=== PATIENT | female | born 1990 | race Two or more races ===

== ENCOUNTER 2017-08-27 20:51 | Emergency (ER) | payer OTHER ==
[~2017-08-27] VITALS: Ht 167.6 cm; Wt 70.4 kg
[2017-08-27] MEDS ORDERED: FAMOTIDINE 20 MG/2 ML ONE (21:27)
[2017-08-27] MEDS ORDERED: KETOROLAC 30 MG/1 ML ONE (21:27)
[2017-08-27] MEDS ORDERED: ONDANSETRON 2MG/ML, 2ML ONE (21:27)
[2017-08-27] MEDS ORDERED: KETOROLAC 30 MG/1 ML IVPush ONE (21:30)
[2017-08-27] MEDS ORDERED: SODIUM CHLORIDE 0.9% 1,000ML IVBOLUS ONE ×2 (21:30→23:30)
[2017-08-27] MEDS ORDERED: SODIUM CHLORIDE FLUSH 10ML SYR IVF ONE (21:30)
[2017-08-27] MEDS ORDERED: FAMOTIDINE 20 MG/2 ML IVP ONE (21:30)
[2017-08-27] MEDS ORDERED: ONDANSETRON 2MG/ML, 2ML IVPush ONE (21:30)
[2017-08-27 21:47] LABS: HCG UR SG 1.021 (1.003-1.030); MICROSCOPIC NOT IND
[2017-08-27 21:49] LABS: CULTURE INDICATED? NO
[2017-08-27 21:51] LABS: BASOPHILS # (AUTO) 0.08 x10^3/uL (0-0.1); BASOPHILS % (AUTO) 1 % (0-1); EOSINOPHILS # (AUTO) 0.18 x10^3/uL (0-0.4); EOSINOPHILS % (AUTO) 1 % (1-7); LYMPHOCYTES # (AUTO) 1.98 x10^3/uL (1-3.4); LYMPHOCYTES % (AUTO) 12 % (22-44); MD NO; MEAN CORPUSCULAR HEMOGLOBIN 29.5 pg (27.0-34.8); MEAN CORPUSCULAR HGB CONC 32.9 g/dL (32.4-35.8); MEAN CORPUSCULAR VOLUME 89.4 fL (80-100); MEAN PLATELET VOLUME 8.2 fL (7.4-10.4); MONOCYTES # (AUTO) 0.98 x10^3/uL (0.2-0.8); MONOCYTES % (AUTO) 6 % (2-9); NEUTROPHILS # (AUTO) 12.74 x10^3/uL (1.8-6.8); NEUTROPHILS % (AUTO) 80 % (42-75); PLATELET COUNT 490 x10^3/uL (130-400); RED BLOOD COUNT 4.24 x10^6/uL (3.82-5.3); RED CELL DISTRIBUTION WIDTH 13.2 % (9.6-15.2)
[2017-08-27 22:00] LABS: ALBUMIN 3.3 g/dL (3.4-5.0); ANION GAP 10 mmol/L (5-15); CALCIUM 8.8 mg/dL (8.5-10.1); CHLORIDE 103 mmol/L (98-107)
[2017-08-27 22:04] LABS: ALANINE AMINOTRANSFERASE 16 U/L (12-78); ALKALINE PHOSPHATASE 64 U/L (45-117); BILIRUBIN,TOTAL 0.3 mg/dL (0.2-1.0); CREATININE 0.96 mg/dL (0.55-1.02); TOTAL PROTEIN 7.5 g/dL (6.4-8.2)
[2017-08-27] MEDS ORDERED: INSULIN REGULAR 100 UNITS/ML, 3ML VIAL IVPush ONE (23:30)
[2017-08-27] MEDS ORDERED: INSULIN REGULAR 100 UNITS/ML, 3ML VIAL ONE (23:34)
[2017-08-27 23:39] VITALS: BP 119/75
== END 2017-08-28 00:32 | disposition home or self-care (01) ==
LOC: ED 23:45
DX: R10.13 Epigastric pain (principal); E10.65 Type 1 diabetes mellitus with hyperglycemia; E86.0 Dehydration; E03.9 Hypothyroidism, unspecified; Z79.4 Long term (current) use of insulin; Z96.41 Presence of insulin pump (external) (internal)
CPT/HCPCS: 36415; 76700; 80053; 81003; 81025; 82962; 83690; 85025; 96361; 96374; 96375; 99285; J1885; J2405; J7030; S0028